=== PATIENT | female | born 1960 | race Caucasian/White ===

== ENCOUNTER 2024-08-23 06:12 | Day surgery (SDC) | payer MEDICARE, OTHER, SELFPAY ==
[2024-08-16 08:26] VITALS: BMI 30.8
[2024-08-23] VITALS (16 sets, daily range): BP systolic 117–148; BP diastolic 57–76; PULSE 58–80; RESP 14–22; TEMP 36.1–36.6; O2SAT 88–100; BMI 31.0
--- NOTE | 2024-08-23 06:00 | DI.RAD.S_ITS ---
PROCEDURE: XR KNEE LT 1TO2V INDICATIONS: total left knee TECHNIQUE: 3 views of the knee were acquired. COMPARISON: None. FINDINGS: Status post left total knee arthroplasty, in near anatomic alignment. No hardware complication. Intra-articular air, favoring to represent in the immediate postprocedural changes. IMPRESSION: Postoperative changes. No hardware complication. Dictated by: Alejandra Padilla M.D. on 08/23/2024 at 15:21 Approved by: Alejandra Padilla M.D. on 08/23/2024 at 15:22
[2024-08-23] MEDS: VANCOMYCIN 1,500 MG/300 ML PIGGYBACK 200 MG IV (06:49)
[2024-08-23] MEDS: ACETAMINOPHEN 325 MG TABLET 975 MG PO ×2 (06:53→13:22)
[2024-08-23] MEDS: CELECOXIB 200 MG CAPSULE 400 MG PO (06:53)
[2024-08-23] MEDS: LACTATED RINGERS 1,000 ML 42 ML IV (06:55)
--- NOTE | 2024-08-23 07:13 | SUR.OPER ---
Supine on padded OR bed. Pillow under head, arms secured on padded armboards <90 degree abduction. Safety belt across torso. Non-operative leg secured with tape over blanket over lower leg. Operative leg secured in DeMayo/Taiwo/Nathe positioner. Foam padded brace at thigh of operative leg.
--- NOTE | 2024-08-23 07:38 | PM.PREOP ---
Pre-operative Note Interval Note History & Physical reviewed/Exam performed by Physician: Yes Changes to H&P: No
--- NOTE | 2024-08-23 07:38 | PM.OP.1 ---
Operative Date/Time/Diagnoses Date of procedure: 08/23/24 Time of procedure: 08:00 Pre-op diagnosis: left knee OA Post-op diagnosis: same Procedure & Clinicians Procedure: Left total knee arthroplasty Same procedure as scheduled: Yes Indications: The patient has had progressively worsening left knee pain with radiographic changes consistent with arthritis. Non-operative management has failed and the patient has requested total knee replacement. The risks, benefits and alternatives to surgery were discussed with the patient prior to proceeding. Risks discussed included, but were not limited to, failure to relieve pain, stiffness, infection, nerve damage, deep venous thrombosis, pulmonary embolism, stroke, coma, heart attack, permanent paralysis and , as well as the potential need for eventual revision of the prosthetic. Surgeon: Hannah Hester Medical Editor: José Miguel Warren Anesthesia Type: General and Spinal Operative Notes Findings: Severe left knee OA, adequate stability, adequate bone Closure Type: primary Specimen(s): none sent Prosthetic devices, grafts, tissues, transplants, or devices: Hester and nephterrence patel BCS2 size 6 femur, size 4 tibia, +10 poly, 35 by 7.5 mm patella Estimated Blood Loss (mL): 250 Blood products transfused: none Tourniquet time (min): 86 Procedure in detail: The patient was seen in the pre-operative area, where the patient identified the left knee as the operative site and this was marked with my initials. The patient received pre-operative antibiotics, and was taken to the operating room and placed on the operative table in the supine position. After satisfactory anesthesia, a registered phlebotomist part time out was performed. The left leg was encircled with a tourniquet about the proximal thigh, and the leg was prepared from the toes to the tourniquet with ChloroPrep in the usual fashion and draped through sterile drapes. The leg was elevated and exsanguinated with Eschmark bandage and the tourniquet inflated to [250] mmHg pressure. A PA was used during the procedure was essential for intraoperative retraction and safe implantation of the components. The knee was approached through an approximately 18 cm incision centered over the patella and carried into the knee through a medial parapatellar arthrotomy. Portion of the medial and lateral meniscus was resected. Soft tissue was carefully mobilized around the patella the patella was measured with a caliper. Bone was resected from the patella and the patellar height was reconstituted with up an appropriate sized patellar component. A cover was then placed on the patella. A small amount of additional medial and lateral meniscus was resected. Cori pins were placed for robot assisted navigation and adjustable tibial guide was pinned to the tibia. A plan was taken and meticulously developed in order to optimize range of motion and stability. The Cori robotic assisted bur was used for the distal femoral resection. It looked like an appropriate distal femoral cut and the cut was made without difficulty. The rotation was assessed and the appropriate size femoral guide was placed on the distal femur and finishing cuts were made. There was no evidence of notching. The anterior, posterior and chamfer cuts were then made. The posterior osteophytes and soft tissues were then removed. The posterior capsule was injected with part of a mixture of 60 ml 0.25% Marcaine mixed with 266 mg Exparel for post operative pain control. The remainder of this mixture was injected into the capsule and subcutaneous tissues during cement curing. The tibial guide was plan pinned to the proximal tibia. it was carefully navigated with the Cori robotic navigation. The proximal tibial cut was made without difficulty. The rotation was assessed. The patient was placed in extension residual medial and lateral meniscus as well as any residual bone was carefully resected. [No] additional tibia was resected. Hemostasis was achieved especially posteriorly. Additional local was injected into the posterior capsule. The extension gap was assessed and additional releases for gap balancing were performed as necessary. It was checked with the gap marine diesel mechanic. The femoral component trial was placed and the notch was finished. Trial tibial and femoral components were then placed and the knee placed through a range of motion. Range of motion was [0-130], with good stability throughout the range. The trials were then removed, and the tibia was finished. The bone was prepared with pulsatile lavage, and dried with a sponge. Cement was applied and the final prosthetics placed. Excess cement was removed during and after cement curing. A brief Betadine soak was performed. After confirming there was no extruded cement posteriorly, the final tibial insert was placed. The knee was copiously irrigated and the tourniquet deflated. Hemostasis was obtained with the Bovie cautery. The capsule was closed with interrupted # 1 Vicryl suture. The subcutaneous layer was closed with barbed sutures, and the skin with a running 3-0 V-Lock suture and Surgical glue. An Aquacel Ag dressing was applied and the patient was taken to recovery having tolerated the procedure well. Complications: none Post-operative Condition: stable Disposition: Acute Care Plan for aftercare: The patient will be maintained on a standard total knee replacement protocol with weight bearing as tolerated. The patient will receive aspirin and sequential compression devices for DVT prophylaxis. The patient will be discharged home when safe for the home environment.
[2024-08-23] MEDS: CEFAZOLIN 2 GM/100 ML PREMIX 100 ML IV (07:58)
[2024-08-23] MEDS: TRANEXAMIC ACID 1,000 MG VIAL 1000 MG INJ ×2 (08:02→09:48)
[2024-08-23] MEDS: BUPIVACAINE 0.25% (PF) 60 ML, EPINEPHrine 0.3 MG INJ (08:14)
[2024-08-23] MEDS: BUPIVACAINE LIPOSOME 266 MG/20 ML VIAL INJ (08:15)
[2024-08-23] MEDS: fentaNYL 100 MCG/2 ML INJ IV ×3 (10:27→10:43)
[2024-08-23] MEDS: OXYCODONE IR 5 MG TABLET PO ×2 (10:30→10:58)
[2024-08-23] MEDS: hydrOXYzine 50 MG/ML INJ 25 MG IM (10:47)
[2024-08-23] MEDS: HYDROMORPHONE 1 MG INJ IV ×2 (11:43→11:50)
--- NOTE | 2024-08-23 14:05 | PT.IIE ---
Current Diagnoses Unilateral primary osteoarthritis, left knee (08/23/24) Surgery Performed Operation Date: 08/23/24 07:45 Actual Procedures p Total Knee Arthroplasty - Robot(Left) - Hannah Hester MD Surgical History (Last Updated 08/16/24 @ 09:16 by Candice Thomas, RN) History of colonoscopy (~06/2024) History of surgery on lower extremity (~1999) History of total right knee replacement (03/1999) Hx of cervical spine surgery (2012) Medical History (Last Updated 08/16/24 @ 09:21 by Candice Thomas RN) GERD (gastroesophageal reflux disease) Hiatal hernia History of COVID-19 HLD (hyperlipidemia) HTN (hypertension) Mitral valve regurgitation Osteoarthritis Pre-diabetes Physical Therapy Inpatient Evaluation/Re-Eval M1 PT/OT-IP Prior Functional Status Start: 08/23/24 14:43 Freq: NEEDED Status: Discharge Protocol: Document 08/23/24 14:05 AB (Rec: 08/23/24 14:54 AB [id number]) Medical Review Prior Functional Status Medical History Reviewed Yes Communication able to make needs known Mobility and Gait pt stated that she was independent with all mobilities and ambulation without AD Social History Household Members none Living Arrangements House Number of Floors (Floors) Two Floors Number of Stairs To Enter/Railing? pt plans to stay on the first level of the house Home Environment High Toilet,Walk in Shower Home Equipment Front Wheel Walker,Raised Toilet Seat Without Armrests, Hand Held Shower Additional Social History Comment pt's daughter will be staying to assist her for ~ 1 week and afterwards, will have neighbors to assist her if needed pt plans to sleep on a recliner upon d/c M2 PT-IP Current Condition Start: 08/23/24 14:43 Freq: NEEDED Status: Discharge Protocol: Document 08/23/24 14:05 AB (Rec: 08/23/24 14:54 AB [id number]) Physical Therapy Current Condition Current Condition Evaluation Date 08/23/24 Treatment Diagnosis s/p L TKA; difficulty in walking Onset Date 08/23/24 M3 PT-IP Subjective Start: 08/23/24 14:43 Freq: NEEDED Status: Discharge Protocol: Document 08/23/24 14:05 AB (Rec: 08/23/24 14:54 AB [id number]) Subjective Physical Therapy Visit Type Type Initial Evaluation Visit Start Time 14:05 Visit Stop Time 14:40 Number of ELECTRONICS SPECIALIST Visits 0 Physical Therapy Visit Comments Patient Comments agreeable to do PT Therapy Pain Assessment Pain When Pain Assessed At Rest Pain Present Pain Present Pain Reported Location Left knee Intensity 1 Scale Used increases to 3/10 with weight bearing Pain Behaviors Guarding Pain Management Techniques Distraction,Modification of Treatment,Re-positioning, Timing of Activity with Medications M4 PT-IP Mobility and Gait Start: 08/23/24 14:43 Freq: NEEDED Status: Discharge Protocol: Document 08/23/24 14:05 AB (Rec: 08/23/24 14:54 [id number]) PT-Bed Mobility Assessment Supine to Sit Supine to Sit Standby Assistance PT-Transfer Assessment Sit to and From Stand Sit to and from Stand Contact Guard Assistance,1 Person Assistance,Use of Upper Extremities Equipment Transfer Assistive Device Gait Belt,Front Wheeled Walker Orthotic/Prosthetic Devices or Brace: No Comments Mobility Comments PACU eval: pt supine in bed. obtained PLOF and home setup. daughter arrived. post-op folder provided and reviewed with pt. educated on HEP. BP: 124/75. Pt completed supine to sit with HOB elevated SBA. no c/o dizziness and able to sit on EOB SBA. pt is sleepy and cued to keep eyes open. completed sit to stand CGA and ambulated in room ~ 30 ft using FWW CGA. pt sat back on EOB. caregiver training conducted. educated pt's daughter on how to use safety belt and how to assist pt. daughter was able to put safety belt on pt and assisted pt with ambulation using FWW. pt completed up/ down step stool using FWW. educated pt and daughter on how to complete simulating home set up. pt required min A and PT initially cueing for techniques. pt completed again with daughter assisting and cueing if needed. pt ambulated ~ 30 ft more using FWW CGA with daughter assisting and sat back non EOB . pt and daughter without further concerns. Left pt with nursing staff. Gait Assessment Gait Gait Assistance Required: Contact Guard Assist Distance (Feet) 30 Able to Maintain Weight Bearing Status Yes During Gait Assistive Devices Assistive Device Gait Belt,Front Wheeled Walker Orthotic/Prosthetic Devices or Brace: No Gait Deviations General Gait Pattern Ataxic,Decreased Stride Length ,Decreased Feet Clearance Factors Limiting Gait Function Factors Limiting Gait Function Decreased Activity Tolerance, Decreased Strength,Limited Range of Motion,Pain,Poor Balance,Poor Safety Awareness Stair Climbing Assessment Evaluation Level of Assist On Stairs Minimal Assistance Devices Stair Climbing Assistive Devices Front Wheel Walker Technique/Endurance Stair Climbing Direction Ascend and Descend Stair Climbing Technique Step to Step Number of Steps Climbed 1 Query Text: Stair Climbing Set # Repetitions (reps) 2 PT-Balance Assessment Sitting Balance and Reactions Static Sitting Balance Ability Normal Dynamic Sitting Balance Ability Normal Standing Balance and Reactions Static Standing Balance Ability Good Dynamic Standing Balance Ability Fair Device Used FWW M5 PT-IP Objective Assessments Start: 08/23/24 14:43 Freq: NEEDED Status: Discharge Protocol: Document 08/23/24 14:05 AB (Rec: 08/23/24 14:54 [id number]) Orientation Orientation/Cognition Level of Alertness Alert Orientation Name,Age,Birthday,Month,Date, Year,Day of Week,Place, Situation Language Function Ability No Deficits Noted Safety Awareness Decreased Safety Awareness Memory Description No Deficits Noted Gross Range of Motion Lower Extremity ROM Assessment Left Impaired Impairments L knee flexion: ~ 50 deg L knee extension: ~ 15 deg less to 0 Strength Lower Extremity Strength Assessment Left Impaired Hip 4-/5 Knee 4-/5 Coordination Assessment Gross Coordination Gross Coordination WNL Sensation Assessment Sensation Gross Sensation WNL Muscle Tone Muscle Tone WNL Yes M6 PT-IP Treatment Start: 08/23/24 14:43 Freq: NEEDED Status: Discharge Protocol: Document 08/23/24 14:05 AB (Rec: 08/23/24 14:54 [id number]) Physical Therapy Treatment Exercises Exercises Heel Slides Education Education Provided Precautions,Weight Bearing Status,Post-Op Packet,Safety M7 PT-IP Assessment and Plan Start: 08/23/24 14:43 Freq: NEEDED Status: Discharge Protocol: Document 08/23/24 14:05 AB (Rec: 08/23/24 14:54 [id number]) PT Summary Assessment and Plan Potential Rehabilitation Potential Good Status of Condition at Evaluation Evolving Summary Impairments Pain,ROM,Strength,Balance, Coordination,Bed Mobility, Transfers,Gait,Activity Tolerance Assessment Summary pt is a 64 y/o F s/p L TKA POD 0. pt is WBAT on LLE. pt seen in PACU floor and plans to go home today. pt requiring CGA with mobility using FWW. caregiver training conducted and daughter was able to assist pt safely with mobility. pt may go home when medically stable. pt has outpt PT set up. Goals Bed Mobility Goal Independent Transfer Goal Independent,Front Wheeled Walker Gait Goal Independent,Front Wheel Walker Gait Distance 200 Other Goals up/down 1 step using FWW mod I Days to Meet Goals 3 Frequency of Treatment Frequency Of Treatment Twice a Day Treatment Plan Physical Therapy Treatment Plan Bed Mobility Training,Transfer Training,Gait Training, Therapeutic Exercise,Balance Retraining,Post Op Education, Discharge Planning,Hot or Cold Pack,Neuromuscular Re-ed, Coordination Retraining,Manual Therapy Weight Bearing Status Weight Bearing Status Weight Bear as Tolerated Allowed Weight Bearing Amount (enter % LLE WBAT or #) (%) Recommendations To Nursing Amount of Assist Needed 1 Person Assist Discharge Recommendations PT Discharge Recommendations Home with Assistance, Outpatient PT Transportation Needs at Discharge Private Vehicle
== END 2024-08-23 14:46 | disposition home or self-care (01) ==
PROVIDERS: Referring Provider Orthopaedic Surgery; Visit Provider Orthopaedic Surgery
PROC: 0SRD0JZ Replacement of Left Knee Joint with Synthetic Substitute, Open Approach (ICD-10-PCS; CPT 27447; principal; 2024-08-23 07:45)
DX: M17.12 Unilateral primary osteoarthritis, left knee (principal); M25.762 Osteophyte, left knee
CPT/HCPCS: 27447; 73560; 97161; 97530; C1776; C9290; J0171; J0690; J1171; J2250; J2704; J3010; J3410

== ENCOUNTER → 2025-03-13 16:51 | Outpatient (CLI) | payer MEDICARE, OTHER, SELFPAY ==
--- NOTE | 2025-03-13 16:56 | DI.MRI.S_ITS ---
PROCEDURE: MR LUMBAR SPINE WO CON INDICATIONS: RADICULOPATHY TECHNIQUE: Noncontrast sagittal T1 spin echo and T2 fast echo, sagittal STIR, and T2 fast spin echo through the lumbar spine. In cases with scoliosis, additional coronal T2 fast spin echo may be performed. COMPARISON: [facility] [place], [place], XR LUMBAR SPINE WITH OBLIQUES, 03/01/2025, 13:48. FINDINGS: Image quality: Excellent. Alignment and Curvature: There is minimal retrolisthesis seen at L2-L3 and L3- L4. Bone Marrow: Marrow is of normal overall signal. No acute vertebral body compression fractures. Spinal Cord: Conus medullaris terminates at the L1 level. Visualized cord demonstrates normal signal and size. Paraspinous Soft Tissues: No paravertebral masses. T12-L1: Normal appearance. L1-L2: Mild loss of disc height is seen. Loss of disc signal is seen. Mild generalized disc bulge is seen. There is a superimposed central disc protrusion. Bridging endplate osteophytes are seen. Mild facet joint hypertrophy is seen. There is moderate left-sided and no right-sided neural foraminal narrowing. No significant central canal narrowing is seen L2-L3: The disc height is well-preserved. Loss of disc signal is seen at this level. Mild generalized disc bulge is seen. There is a superimposed central disc protrusion. Bridging endplate osteophytes are seen. Mild facet joint hypertrophy is seen. There is moderate left-sided and mild right-sided neural foraminal narrowing. Mild to moderate central canal narrowing is seen. L3-L4: The disc height is well-preserved. Loss of disc signal is seen at this level. Mild generalized disc bulge is seen. There is a superimposed central/left disc protrusion. There is a focal annular fissure seen posteriorly. Mild facet joint hypertrophy is seen. There is at least moderate right-sided neural foraminal narrowing. There is moderate to severe left-sided neural foraminal narrowing, with a degree of compression upon the exiting left L3 nerve root. Moderate central canal narrowing is seen. L4-L5: The disc height and disk signal are relatively well-preserved. Mild generalized disc bulge is seen. Mild to moderate facet hypertrophy is seen, left worse than right. There is at least moderate bilateral neural foraminal narrowing. There is a degree of compression seen upon the exiting nerve roots. No significant central canal narrowing is seen. L5-S1: The disc height and disk signal are relatively well-preserved. Mild generalized disc bulge is seen. Mild facet joint hypertrophy is seen. Moderate bilateral neural foraminal narrowing is seen. No central canal narrowing is seen. IMPRESSION: Multiple levels of lumbar spine degenerative change can be seen, which are overall worst at the L3-L4 level. Dictated by: Adrian Reyes M.D. on 03/14/2025 at 10:40 Approved by: Adrian Reyes M.D. on 03/14/2025 at 10:43
== END ==
PROVIDERS: Referring Provider Physician Assistant; Visit Provider Physician Assistant
DX: M47.26 Other spondylosis with radiculopathy, lumbar region (principal); M47.27 Other spondylosis with radiculopathy, lumbosacral region
CPT/HCPCS: 72148